=== PATIENT | male | born 1950 | race Caucasian/White ===

== ENCOUNTER 2016-05-26 16:01 | Emergency (ER) | payer MEDICARE, OTHER ==
[2016-05-26] MEDS ORDERED: KETOROLAC 60 MG/2 ML VIAL IM ONE (17:37)
[2016-05-26] MEDS ORDERED: TDaP 0.5 ML VIAL IM.VACC ONE (18:53)
== END 2016-05-26 19:31 | disposition home or self-care (01) ==
LOC: ER 16:01
CPT/HCPCS: 90471; 96372